=== PATIENT | male | born 1960 | race Caucasian/White ===

== ENCOUNTER 2017-01-30 14:39 | Emergency (ER) | payer BC ==
[~2017-01-30] VITALS: Ht 188 cm; Wt 119.2 kg
[2017-01-30 14:45] VITALS: TEMP 36.7; Ht 188 cm; Wt 119.2 kg
[2017-01-30] MEDS ORDERED: SITA100T3 PO (15:12)
[2017-01-30] MEDS ORDERED: HYDR25TA5 PO (15:12)
[2017-01-30] MEDS ORDERED: PSYL48.59 PO (15:12)
[2017-01-30] MEDS ORDERED: GLIM4TAB2 PO (15:12)
[2017-01-30] MEDS ORDERED: LISI-725 PO (15:12)
[2017-01-30] MEDS ORDERED: CLX/20 PO (15:12)
[2017-01-30] MEDS ORDERED: ASPI81TA28 PO (15:12)
[2017-01-30] MEDS ORDERED: ATOR-24 PO (15:12)
[2017-01-30] MEDS ORDERED: XYLOCAINE 1%/SOD BICARB 20 ML VIAL INFIL ONE (15:15)
[2017-01-30 15:59] VITALS: BP 133/90; PULSE 84; O2SAT 99
--- NOTE | 2017-01-30 16:57 | EMERGENCY ROOM VISIT NOTE ---
History First contact with patient: 15:01 Chief Complaint: SWELLING TO EXTREMITY Stated Complaint: SWELLING TO RIGHT ELBOW History of Present Illness The patient is a 56 year old male who presents to the Emergency Room with complaints of rather sudden onset of swelling of the right posterior elbow. The patient reports that he was told in the past that he had a chip in the elbow. It has never caused any problems. 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 He denies any recent trauma or injury to the site, and currently denies any pain. The patient is [id number]. Review of Systems 10 system review was performed and was negative except for pertinent positives and negatives as indicated in history of present illness Past Medical/Surgical History Medical Problems: (1) Diabetes (2) Hypertension (3) Shoulder dislocation Surgical Problems: (1) History of arthroscopic knee surgery Family History FH: cancer FH: diabetes mellitus FH: heart disease FH: hypertension Social History Smoking Status: Former Smoker Alcohol Use: none Housing Status: lives alone Occupation Status: employed Current/Historical Medications Scheduled Aspirin (Aspirin Ec), 81 MG PO HS Atorvastatin (Lipitor), 40 MG PO HS Citalopram (Citalopram Hydrobromide), 10 MG PO HS Glimepiride (Glimepiride), 4 MG PO BID Hydrochlorothiazide (Hydrochlorothiazide), 25 MG PO QAM Lisinopril (Zestril), 10 MG PO QAM Psyllium (Metamucil), 1 DOSE PO DAILY Sitagliptin Phosphate (Januvia), 100 MG PO QAM Physical Exam Vital Signs Date Time Temp Pulse Resp B/P (MAP) Pulse Ox O2 Delivery O2 Flow Rate FiO2 01/30/17 15:59 84 18 133/90 99 01/30/17 14:45 36.7 87 16 151/93 95 Room Air Physical Exam CONSTITUTIONAL: Healthy and well nourished. Alert and oriented X 3 with positive affect. HEENT: Normocephalic, atraumatic. Pupils equal, round and reactive. NECK: Full active range of motion without discomfort. RESPIRATORY: Clear to auscultation bilaterally with no wheezing, crackles, rhonchi or stridor. CARDIOVASCULAR: Regular rate and rhythm with no murmurs, rubs or gallops. GASTROINTESTINAL: Bowel sounds present in all quadrants. Soft and nontender to palpation. MUSCULOSKELETAL: Examination of the right posterior elbow shows a golf size fluctuant mass without overriding erythema or warmth to palpation. The patient has no worsening pain with flexion or extension, pronation or supination of the elbow. Distal pulses are intact. INTEGUMENTARY: No rash or other significant dermatologic conditions noted. NEUROLOGIC: Right hand and fingers are sensory intact. Medical Decision & Procedures Procedure Bursal aspiration was performed after receiving verbal consent from the patient. The bursa was painted with iodine and allowed to dry. Sterile field was created. Using buffered 1% lidocaine without epinephrine, a good local wheal was administered. Using an 18-gauge needle, attempted aspiration was performed, showing bloody drainage. The needle had to be handout in order to collect 10 mL of bloody fluid. Estimated decrease in size was a little more than 50%. A pressure dressing was applied. Bursal aspirate was sent to the lab for cultures. ED Course Patient history and physical exam were performed. Nurse's notes were reviewed. Vital signs were reviewed, showing an elevated blood pressure 151/93. Bursal aspiration was performed, showing a bloody aspirate although the patient denies any recent trauma to the elbow. I did order cultures to rule out infectious etiology. A pressure dressing was applied, and the patient was encouraged to keep the pressure dressing in place over the next few days. Did suggest that he follow up with [facility] for further management. Return to the emergency department for any signs of developing infection, worsening pain or joint pain. The patient was happy with plan of care, voiced understanding of all discharge instructions, and denied any pain at the time of discharge. Medical Decision Blood Pressure Screening Patient's blood pressure: Elevated blood pressure Blood pressure disposition: Elevated BP felt to be situational Impression Primary Impression: Olecranon bursitis, right elbow Departure Information Dispostion Home / Self-Care Condition GOOD Referrals Abebe Lopez M.D. Forms HOME CARE DOCUMENTATION FORM, IMPORTANT VISIT INFORMATION Patient Instructions My [facility], ED Bursitis Elbow Olecranon Additional Instructions Keep pressure on elbow for the next few days to prevent further reinflation of the bursa. Ibuprofen or Tylenol as needed for pain. Follow-up with orthopedics if the swelling persists. Return to the emergency department for any developing redness, red streaks or fever. Suggest follow-up with [facility] (Dr. Lopez) for further reevaluation and management - call tomorrow morning for an appointment.
== END 2017-01-30 16:00 | disposition home or self-care (01) ==
LOC: C.EDB 14:41 → C.EDD 16:00
DX: M70.21 Olecranon bursitis, right elbow (principal); E11.9 Type 2 diabetes mellitus without complications; I10 Essential (primary) hypertension; Z83.3 Family history of diabetes mellitus; Z82.49 Family history of ischemic heart disease and other diseases of the circulatory system; Z87.891 Personal history of nicotine dependence; Z79.82 Long term (current) use of aspirin